=== PATIENT | male | born 1985 | race Caucasian/White ===

== ENCOUNTER 2019-03-27 19:35 | Emergency (ER) | payer OTHER ==
[~2019-03-27] VITALS: Ht 185.4 cm; Wt 79.4 kg
[2019-03-27 19:37] VITALS: BP 131/79
[2019-03-27] MEDS ORDERED: NOHOMEMEDICATIONS (19:47)
[2019-03-27] MEDS ORDERED: NAPROSYN500 MG PO (20:54)
== END 2019-03-27 21:15 | disposition home or self-care (01) ==
LOC: ER 19:35
DX: M76.52 Patellar tendinitis, left knee (principal); J45.909 Unspecified asthma, uncomplicated; W18.49XA Other slipping, tripping and stumbling without falling, initial encounter; Y93.89 Activity, other specified; Y92.69 Other specified industrial and construction area as the place of occurrence of the external cause; Y99.9 Unspecified external cause status